=== PATIENT | male | born 1970 | race Two or more races ===

== ENCOUNTER 2020-02-05 20:58 | Emergency (ER) | payer OTHER ==
[~2020-02-05] VITALS: Ht 162.6 cm; Wt 84.1 kg
[2020-02-05] MEDS ORDERED: PROZ10 PO (21:15)
[2020-02-05] MEDS ORDERED: GLIP5 PO (21:15)
[2020-02-05] MEDS ORDERED: ANXIETY PO (21:15)
[2020-02-05] MEDS ORDERED: ATOR40TA28 PO (21:15)
[2020-02-05] MEDS ORDERED: ASPI-1111 PO (21:15)
[2020-02-05] MEDS ORDERED: INSREG SQ (21:15)
[2020-02-05] MEDS ORDERED: METF-960 PO (21:15)
[2020-02-05] MEDS ORDERED: IBUPROFEN 400 MG TABLET PO ONE (22:15)
[2020-02-05] MEDS ORDERED: ACETAMINOPHEN 325 MG TABLET PO ONE (22:15)
[2020-02-06 02:20] VITALS: BP 129/83
== END 2020-02-06 02:47 | disposition home or self-care (01) ==
LOC: EMS 20:58
DX: S76.812A Strain of other specified muscles, fascia and tendons at thigh level, left thigh, initial encounter (principal); E11.9 Type 2 diabetes mellitus without complications; F41.9 Anxiety disorder, unspecified; M79.644 Pain in right finger(s); X50.9XXA Other and unspecified overexertion or strenuous movements or postures, initial encounter; Y93.89 Activity, other specified; Y92.89 Other specified places as the place of occurrence of the external cause; Y99.8 Other external cause status
CPT/HCPCS: 29530

== ENCOUNTER 2020-07-28 07:37 | Emergency (ER) | payer OTHER ==
[~2020-07-28] VITALS: Ht 170.2 cm; Wt 81.8 kg
[~2020-07-28 07:37] MED LIST: ANXIETY PO; ASPI-1444 PO; ATOR40TA28 PO; GLIP5 PO; INSREG SQ; METF-960 PO; PROZ10 PO
[2020-07-28 10:44] LABS: BASOPHILS % (AUTO) 0.3 % (0.0-2.0); EOSINOPHILS % (AUTO) 0.3 % (1.0-6.0); HEMATOCRIT 40.6 % (41-53); HEMOGLOBIN 13.5 g/dL (13.5-17.5); LYMPHOCYTES # (AUTO) 1.7 K/uL (1.0-4.8); LYMPHOCYTES % (AUTO) 22.8 % (22.0-44.0); MEAN CORPUSCULAR HEMOGLOBIN 29.1 pg (26.0-34.0); MEAN CORPUSCULAR HGB CONC 33.3 G/dL (31.0-37.0); MEAN CORPUSCULAR VOLUME 87 fL (80-100); MONOCYTES # (AUTO) 0.5 K/uL (0.1-1.0); MONOCYTES % (AUTO) 6.4 % (2.0-9.0); NEUTROPHILS # (AUTO) 5.1 K/uL (1.8-7.7); NEUTROPHILS % (AUTO) 70.2 % (40.0-70.0); PLATELET COUNT (AUTO) 283 K/uL (150-450); RED BLOOD CELL COUNT(AUTO) 4.65 MIL/uL (4.50-5.90); RED CELL DISTRIBUTION WIDTH 13.1 % (11.5-14.5)
[2020-07-28 10:52] LABS: ANION GAP 7 mmol/L (8-16); CALCIUM, TOTAL 8.8 mg/dL (8.8-10.5); CARBON DIOXIDE 30 mmol/L (22-29); CHLORIDE 104 mmol/L (98-107); CREATININE 0.67 mg/dL (0.60-1.30); GLOMERULAR FILTR. RATE CALC > 60 mL/min (>60); GLUCOSE,RANDOM 140 mg/dL (70-110); POTASSIUM 3.8 mmol/L (3.5-5.1); SODIUM SERUM 141 mmol/L (136-145); UREA NITROGEN, BLOOD 17 mg/dL (7-18)
[2020-07-28 10:58] LABS: ALANINE AMINOTRANSFERASE 34 U/L (12-78); ALBUMIN 3.8 g/dL (3.4-5.0); ALKALINE PHOSPHATASE 89 U/L (46-116); ASPARTATE AMINOTRANSFERASE 19 U/L (15-37); BILIRUBIN,TOTAL 0.4 mg/dL (0.1-1.0); TOTAL PROTEIN, SERUM 7.2 g/dL (6.4-8.2)
[2020-07-28] MEDS ORDERED: CLINDAMYCIN 900 MG/D5% WATER 50 ML IV ONE (11:00)
[2020-07-28 12:00] VITALS: BP 126/76
== END 2020-07-28 12:10 | disposition home or self-care (01) ==
LOC: EMS 07:48
DX: L03.114 Cellulitis of left upper limb (principal); F41.9 Anxiety disorder, unspecified; E11.9 Type 2 diabetes mellitus without complications; E78.00 Pure hypercholesterolemia, unspecified; Z79.82 Long term (current) use of aspirin; Z79.84 Long term (current) use of oral hypoglycemic drugs
CPT/HCPCS: 36415; 73130; 80053; 85025; 96365; 99284; J3490

== ENCOUNTER 2021-12-03 11:53 | Emergency (ER) | payer OTHER ==
[~2021-12-03] VITALS: Ht 170.2 cm; Wt 72.7 kg
[~2021-12-03 11:53] MED LIST changes: -ANXIETY PO; +FLUO10CA24 PO; -GLIP5 PO; +GLIP5TAB12 PO; +METF-1211 PO; -METF-960 PO; -PROZ10 PO
[2021-12-03 12:16] LABS: GLUCOMETER DEV NAME(LOC) ERT.5; GLUCOSE,POINT OF CARE 291 MG/DL (70-110)
[2021-12-03] MEDS ORDERED: DOXY-354 PO (13:59)
[2021-12-03] MEDS ORDERED: PERTUSS(ACELL),DIPH,TET VAC/PF 0.5 ML SYRINGE IM. ONE (14:00)
[2021-12-03] MEDS ORDERED: DOXYCYCLINE HYCLATE 100 MG TABLET PO ONE (14:00)
[2021-12-03 14:20] VITALS: BP 147/75
== END 2021-12-03 14:23 | disposition home or self-care (01) ==
LOC: EMS 11:53
DX: S91.331A Puncture wound without foreign body, right foot, initial encounter (principal); E11.9 Type 2 diabetes mellitus without complications; E78.00 Pure hypercholesterolemia, unspecified; F41.9 Anxiety disorder, unspecified; L08.9 Local infection of the skin and subcutaneous tissue, unspecified; W45.0XXA Nail entering through skin, initial encounter; Y93.89 Activity, other specified; Y92.89 Other specified places as the place of occurrence of the external cause; Y99.8 Other external cause status; Z90.49 Acquired absence of other specified parts of digestive tract
CPT/HCPCS: 82962; 90471; 90715; 99283